=== PATIENT | female | born 1945 | race Caucasian/White ===

== ENCOUNTER 2022-04-16 09:58 | Outpatient (CLI) | payer MEDICARE, BC, SELFPAY ==
--- NOTE | 2022-04-16 11:29 | W.ANESCHARGE ---
Anesthesia Charges Start Date/Time Anesthesia Start Date: 04/16/22 Anesthesia Start Time: 11:05 Stop Date/Time Anesthesia Stop Date: 04/16/22 Anesthesia Stop Time: 11:28 Summary Emergency: No Extremes of Age: Over 69-CPT [id number]
--- NOTE | 2022-04-16 11:41 | W.ANESCHARGE ---
Anesthesia Charges Start Date/Time Anesthesia Start Date: 04/16/22 Anesthesia Start Time: 11:05 Stop Date/Time Anesthesia Stop Date: 04/16/22 Anesthesia Stop Time: 11:28 Summary Emergency: No Extremes of Age: Over 69-CPT [id number]
== END 2022-04-16 09:59 | disposition home or self-care (01) ==
PROVIDERS: PCP Family Medicine; Visit Provider Internal Medicine Gastroenterology
DX: D50.9 Iron deficiency anemia, unspecified (principal); K22.70 Barrett's esophagus without dysplasia; K44.9 Diaphragmatic hernia without obstruction or gangrene
CPT/HCPCS: 00731; 43239; 99100; J2704

== ENCOUNTER 2023-04-15 10:04 | Outpatient (CLI) | payer MEDICARE, BC, SELFPAY ==
--- NOTE | 2023-04-15 11:46 | W.ANESCHARGE ---
Anesthesia Charges Start Date/Time Anesthesia Start Date: 04/15/23 Anesthesia Start Time: 11:20 Stop Date/Time Anesthesia Stop Date: 04/15/23 Anesthesia Stop Time: 11:42 Summary Extremes of Age - Over 70 or under 1: [employer]
== END 2023-04-15 10:05 | disposition home or self-care (01) ==
PROVIDERS: PCP Family Medicine; Visit Provider Internal Medicine Gastroenterology
DX: K22.70 Barrett's esophagus without dysplasia (principal); K44.9 Diaphragmatic hernia without obstruction or gangrene; K31.89 Other diseases of stomach and duodenum
CPT/HCPCS: 00731; 43239; 88305; 99100; J2704

== ENCOUNTER 2024-08-11 14:28 | Outpatient (CLI) | payer MEDICARE, BC, SELFPAY | END 2024-08-11 14:29 | disposition home or self-care (01) | PROVIDERS: PCP Family Medicine; Visit Provider Family Medicine | DX: M54.16 Radiculopathy, lumbar region (principal); M51.369 Other intervertebral disc degeneration, lumbar region without mention of lumbar back pain or lower extremity pain | CPT/HCPCS: 64483; 64484; J1100; Q9966 ==

== ENCOUNTER 2025-01-12 12:11 | Outpatient (CLI) | payer MEDICARE, BC, SELFPAY | END 2025-01-12 12:12 | disposition home or self-care (01) | LOC: INJ CL 12:13 | PROVIDERS: PCP Family Medicine; Visit Provider Family Medicine | DX: M54.16 Radiculopathy, lumbar region (principal); M51.369 Other intervertebral disc degeneration, lumbar region without mention of lumbar back pain or lower extremity pain | CPT/HCPCS: 62323; Q9966 ==